=== PATIENT | male | born 1960 | race Caucasian/White ===

== ENCOUNTER 2017-04-26 08:56 | Day surgery (SDC) | payer OTHER ==
[2017-04-26] MEDS ORDERED: MIDAZOLAM HCL 5 MG/5 ML VIAL ONE ×2 (09:22→09:23)
[2017-04-26] MEDS ORDERED: SIMETHICONE 40 MG/0.6 ML ML ONE (09:23)
[2017-04-26] MEDS ORDERED: MEPERIDINE HCL/PF 100 MG/ML AMP ONE (09:23)
== END 2017-04-26 11:40 ==
LOC: SDS 08:56
PROVIDERS: ATTEND Internal Medicine Gastroenterology
DX: R63.4 Abnormal weight loss (principal); Z53.8 Procedure and treatment not carried out for other reasons; I10 Essential (primary) hypertension; F79 Unspecified intellectual disabilities; Z88.0 Allergy status to penicillin; Z93.1 Gastrostomy status
CPT/HCPCS: J2175; J2250; J7030